=== PATIENT | male | born 1950 | race Caucasian/White ===

== ENCOUNTER 2016-09-18 20:47 | Emergency (ER) | payer MEDICARE, MEDICAID ==
[~2016-09-18] VITALS: Ht 185.4 cm; Wt 76.2 kg
[~2016-09-18 20:47] MED LIST: ASPIRIN EC81 MG PO; ELIMITE60 GM EX; LOTRISONE EX; MEDDOSEPAK PO; METOPROL TAR50 MG PO; METOPROLOL TART50 MG PO; METOPROLOL TARTRATE 50 MG PO; PLAVIX75 MG PO; PROBENECID500 MG PO
[2016-09-18 22:56] LABS: C. DIFFICILE TOXIN A&B NEGATIVE (NEGATIVE)
[2016-09-18 23:43] VITALS: BP 135/75
== END 2016-09-18 23:43 | disposition home or self-care (01) ==
LOC: ED 20:47
DX: A04.7 Enterocolitis due to Clostridium difficile (principal); C20 Malignant neoplasm of rectum; Z93.3 Colostomy status

== ENCOUNTER → 2018-07-15 | Outpatient (REF) | payer MEDICARE ==
[~2018-07-15] MED LIST changes: +METOPROL TAR25 MG PO
[2018-07-15 11:18] LABS: HEMATOCRIT 44.7 % (39.0-50.0); HEMOGLOBIN 14.7 g/dl (14.0-18.0); IMMATURE GRANULOCYTES 1.1 % (0.0-5.0); MEAN CELL VOLUME 95.1 fL CALC (80.0-100.0); MEAN CORPUSCULAR HGB 31.3 pG CALC (26.0-32.0); MEAN CORPUSCULAR HGB CONC 32.9 g/L CALC (32.0-36.0); NEUT# 4.87 thou/uL (1.82-7.42); RED BLOOD COUNT 4.7 mill/uL (4.70-6.10); RED CELL DISTRI WIDTH 13.7 % (11.5-15.5)
[2018-07-15 11:21] LABS: URINE BILIRUBIN - DIPSTICK NEGATIVE (NEGATIVE); URINE BLOOD DIPSTICK MODERATE (NEGATIVE); URINE COLOR YELLOW; URINE GLUCOSE - DIPSTICK NEGATIVE (NEGATIVE); URINE KETONE NEGATIVE (NEGATIVE); URINE NITRITE - DIPSTICK NEGATIVE (Negative); URINE PH 5.5 (4.5-8.0); URINE PROTEIN - DIPSTICK NEGATIVE (NEG-TRACE); URINE UROBILINOGEN - DIPSTICK 0.2 E.U./dL (0.2)
[2018-07-15 11:27] LABS: URINE LEUK ESTERASE MODERATE (NEGATIVE)
[2018-07-15 11:28] LABS: URINE BACTERIA FEW hpf; URINE EPITHELIAL CELLS FEW EPI/hpf (0-FEW)
[2018-07-15 11:44] LABS: ALBUMIN 4.1 g/dL (3.2-5.0); ALKALINE PHOSPHATASE 125 u/l (38-126); ANION GAP 13 (6-22 (CALC)); BILIRUBIN, TOTAL 0.5 mg/dL (0.0-1.4); BUN 10 mg/dL (8-23); BUN/CREATININE RATIO 9 (12-20 (CALC)); CALCULATED LDLCHOLESTEROL 69 mg/dL (62-129 (CALC)); CARBON DIOXIDE 25 mmol/l (22-30); CHLORIDE 108 mmol/l (95-108); CHOLESTEROL HDL RATIO 3.1 (<4.4 (CALC)); CREATININE 1.2 mg/dL (0.7-1.3); GFR > 60 ML/MIN (>=60 (CALC)); GFR FOR AFR.AMER. > 60 ML/MIN (>=60 (CALC)); HDL CHOLESTEROL 53 mg/dL (>=40); POTASSIUM 4.7 mmol/l (3.5-5.1); SGOT/AST 18 u/l (19-48); SODIUM 141 mmol/l (137-146); TOTAL CHOLESTEROL 166 mg/dl (0-199); TOTAL PROTEIN 7.2 g/dL (6.3-8.2); TOTAL TRIGLYCERIDES 221 mg/dl (30-149); VLDL CHOLESTROL 44 mg/dl (4-45 (CALC))
== END | disposition home or self-care (01) ==
LOC: LAB 10:14
PROVIDERS: ATTEND Internal Medicine Geriatric Medicine
DX: I10 Essential (primary) hypertension (principal); N39.0 Urinary tract infection, site not specified

== ENCOUNTER 2019-02-14 07:38 | Day surgery (SDC) | payer MEDICARE ==
[~2019-02-14] VITALS: Ht 188 cm; Wt 90.7 kg
[~2019-02-14 07:38] MED LIST changes: +CIPROFLOXACIN500 M1 PO; +TAMSULOSIN HCL0.4 MG PO
[2019-02-14] MEDS ORDERED: PERCOCET 10/31 COMBO PO (09:59)
[2019-02-14 10:20] VITALS: BP 116/67
== END 2019-02-14 10:50 | disposition home health service (06) ==
LOC: ORM 07:38
PROVIDERS: ATTEND Urology
PROC: 0TND8ZZ Release Urethra, Via Natural or Artificial Opening Endoscopic (ICD-10-PCS; principal; 2019-02-14)
DX: N35.912 Unspecified bulbous urethral stricture, male (principal); N40.1 Benign prostatic hyperplasia with lower urinary tract symptoms; N13.8 Other obstructive and reflux uropathy; R33.8 Other retention of urine; I48.91 Unspecified atrial fibrillation; I10 Essential (primary) hypertension; Z87.891 Personal history of nicotine dependence
CPT/HCPCS: C1769; J0131; J1100

== ENCOUNTER 2022-11-23 03:04 | Observation (INO) | payer MEDICARE ==
[2022-11-23] VITALS (13 sets, daily range): BP systolic 110–145; BP diastolic 57–77
[~2022-11-23] VITALS: Ht 188 cm; Wt 74.0 kg
[~2022-11-23 03:04] MED LIST changes: +PERCOCET 10/31 COMBO PO
[2022-11-23 04:02] LABS: BASO% 0.4 % (0-3); HEMATOCRIT 40.8 % (39.0-50.0); HEMOGLOBIN 13.4 g/dl (14.0-18.0); IMMATURE GRANULOCYTES 0.5 % (0.0-5.0); LYMPH% 9.4 % (15-41); MEAN CELL VOLUME 91.5 fL CALC (80.0-100.0); MEAN CORPUSCULAR HGB CONC 32.8 g/dL CAL (32.0-36.0); MONO% 7.4 % (2-13); NEUT# 6.88 thou/uL (1.82-7.42); NEUT% 80.3 % (42-76); RED BLOOD COUNT 4.46 mill/uL (4.70-6.10); RED CELL DISTRI WIDTH 13.5 % (11.5-15.5)
[2022-11-23 04:10] LABS: ALBUMIN 3.6 g/dL (3.2-5.0); ALKALINE PHOSPHATASE 122 u/l (38-126); AMYLASE 67 u/l (30-110); ANION GAP 9 (6-22 (CALC)); BILIRUBIN, TOTAL 0.6 mg/dL (0.2-1.3); BUN 8 mg/dL (8-23); BUN/CREATININE RATIO 9 (12-20 (CALC)); CARBON DIOXIDE 29 mmol/l (22-30); CHLORIDE 101 mmol/l (95-108); CREATININE 0.9 mg/dL (0.7-1.3); GFR FOR AFR.AMER. > 60 ML/MIN (>=60 (CALC)); GFR OTHER RACES > 60 ML/MIN (>=60 (CALC)); POTASSIUM 4.4 mmol/l (3.5-5.1); SGOT/AST 20 u/l (19-48); SODIUM 134 mmol/l (137-146); TOTAL PROTEIN 6.7 g/dL (6.3-8.2)
[2022-11-23 04:15] LABS: URINE BILIRUBIN - DIPSTICK NEGATIVE (NEGATIVE); URINE BLOOD DIPSTICK TRACE-INTACT (NEGATIVE); URINE COLOR YELLOW; URINE GLUCOSE - DIPSTICK NEGATIVE (NEGATIVE); URINE KETONE NEGATIVE (NEGATIVE); URINE LEUK ESTERASE NEGATIVE (NEGATIVE); URINE PROTEIN - DIPSTICK NEGATIVE (NEG-TRACE); URINE UROBILINOGEN - DIPSTICK 0.2 E.U./dL (0.2)
[2022-11-23 04:34] LABS: URINE NITRITE - DIPSTICK NEGATIVE (Negative)
[2022-11-24 04:09] VITALS: BP 134/69
[2022-11-24 04:57] VITALS: BP 134/69
[2022-11-24 05:31] LABS: BASO% 0.5 % (0-3); EOS% 3.6 % (0-8); HEMATOCRIT 37.5 % (39.0-50.0); HEMOGLOBIN 12.1 g/dl (14.0-18.0); IMMATURE GRANULOCYTES 0.7 % (0.0-5.0); LYMPH% 17.5 % (15-41); MEAN CELL VOLUME 91.9 fL CALC (80.0-100.0); MEAN CORPUSCULAR HGB 29.7 pG CALC (26.0-32.0); MEAN CORPUSCULAR HGB CONC 32.3 g/dL CAL (32.0-36.0); NEUT# 3.12 thou/uL (1.82-7.42); NEUT% 70.7 % (42-76); RED BLOOD COUNT 4.08 mill/uL (4.70-6.10); RED CELL DISTRI WIDTH 13.9 % (11.5-15.5)
[2022-11-24 05:48] LABS: ALKALINE PHOSPHATASE 103 u/l (38-126); ANION GAP 6 (6-22 (CALC)); BILIRUBIN, TOTAL 0.6 mg/dL (0.2-1.3); BUN 8 mg/dL (8-23); BUN/CREATININE RATIO 9 (12-20 (CALC)); CARBON DIOXIDE 26 mmol/l (22-30); CHLORIDE 109 mmol/l (95-108); CREATININE 0.9 mg/dL (0.7-1.3); GFR FOR AFR.AMER. > 60 ML/MIN (>=60 (CALC)); GFR OTHER RACES > 60 ML/MIN (>=60 (CALC)); POTASSIUM 4.2 mmol/l (3.5-5.1); SGOT/AST 16 u/l (19-48); SODIUM 137 mmol/l (137-146); TOTAL PROTEIN 5.5 g/dL (6.3-8.2)
[2022-11-24 05:52] LABS: ALBUMIN 2.8 g/dL (3.2-5.0); MAGNESIUM 1.9 mg/dL (1.6-2.3)
[2022-11-24 06:16] LABS: TSH, 3RD GENERATION 1.62 uIU/mL (0.47 - 4.68)
[2022-11-24 07:02] VITALS: BP 140/77
[2022-11-24 08:00] VITALS: BP 140/77
[2022-11-24 10:30] VITALS: BP 111/57
[2022-11-24 12:03] VITALS: BP 111/57
== END 2022-11-24 12:30 | disposition home or self-care (01) ==
LOC: ED 03:04 → ED-I 05:55 → ED 06:13 → MS2 06:13
PROVIDERS: Emergency Medicine; Nurse Practitioner Family; ADMIT Internal Medicine; ATTEND Internal Medicine
DX: R00.1 Bradycardia, unspecified (principal); T44.7X5A Adverse effect of beta-adrenoreceptor antagonists, initial encounter; I10 Essential (primary) hypertension; I48.91 Unspecified atrial fibrillation; Z85.048 Personal history of other malignant neoplasm of rectum, rectosigmoid junction, and anus; Z90.49 Acquired absence of other specified parts of digestive tract; Z20.822 Contact with and (suspected) exposure to COVID-19
CPT/HCPCS: J1650; Q9967